=== PATIENT | male | born 1955 | race Caucasian/White ===

== ENCOUNTER 2017-01-04 10:32 | Emergency (ER) | payer BC, OTHER ==
--- NOTE | 2017-01-04 11:54 | ED ORDER SUMMARY ---
..... Patient: KEILA SMILEY OrderSheet [facility] VisitID: [id number] [place] [address] 61y, M Registration Date/Time: 01/04/2017 ORDER SHEET Weight: 91.6 kg (stated) Allergies: Penicillins, Cephalexin GENERAL ORDERS: Dress Wounds (11:34 01/04/2017 Isaías PAPPAS) (11:43 LWhaltony R.N.) MEDICATION ORDERS: Tdap IM 0.5 mL (NOW, per protocol) (11:34 01/04/2017 Isaías PAPPAS) (11:45 LWmarsha R.N.) IV FLUIDS: ORDER SHEET NOTES: [Electronically signed by Dani Kaur MD (13:00 01/04/2017)] [Electronically signed by Fabienne Davison R.N. (09:55 01/09/2017)] [Electronically locked/signed by Fabienne Davison R.N. (09:55 01/09/2017)]
--- NOTE | 2017-01-04 11:54 | ED ORDER SUMMARY ---
..... Patient: KEILA SMILEY OrderSheet [facility] VisitID: [id number] [place] [address] 61y, M Registration Date/Time: 01/04/2017 ORDER SHEET Weight: 91.6 kg (stated) Allergies: Penicillins, Cephalexin GENERAL ORDERS: Dress Wounds (11:34 01/04/2017 Isaías PAPPAS) (11:43 LWhaltony R.N.) MEDICATION ORDERS: Tdap IM 0.5 mL (NOW, per protocol) (11:34 01/04/2017 Isaías PAPPAS) (11:45 LWmarsha R.N.) IV FLUIDS: ORDER SHEET NOTES: [Electronically signed by Dani Kaur MD (13:00 01/04/2017)] [Electronically signed by Fabienne Davison R.N. (09:55 01/09/2017)] [Electronically locked/signed by Fabienne Davison R.N. (09:55 01/09/2017)]
--- NOTE | 2017-01-04 11:54 | ED CLINICAL REPORT ---
Clinical Report - Physicians/Mid Levels [facility] [address] [place] [address] 01/04/2017 10:34 Patient: KEILA SMILEY Time Seen: 10:39. Arrived- By private vehicle. Historian- patient. HISTORY OF PRESENT ILLNESS Chief Complaint: DOG BITE. Location of injuries- right hand. The injury occurred today. The animal reportedly appeared well and the immunization status of the animal is unknown. The animal was not captured. Occurred at home. (t was a neighborhood dog walked into his yard and confronted his dog. He was trying to separate them when the neighborhood dog bit him). Treatment TYPE MAPPER- none. REVIEW OF SYSTEMS No numbness, tingling, chills, fever or sweats. No calf pain, chest pain, cough, difficulty breathing or pedal edema. No palpitations, abdominal pain, constipation, diarrhea or nausea. No vomiting or urinary problems. All systems otherwise negative, except as recorded above. PAST HISTORY Tetanus immunization status is unknown. SOCIAL HISTORY Never smoker. No alcohol use or drug use. FAMILY HISTORY No significant family medical history. ADDITIONAL NOTES The nursing notes have been reviewed. PHYSICAL EXAM Vital Signs: 01/04/2017 10:42 BP: 146/87. HR: 69. RR: 18. O2 saturation: 96%. Temp: 98.4 F. Have been reviewed. Appearance: Alert. Eyes: Eyes normal inspection. ENT: Nose normal on inspection. Mouth normal on inspection. Neck: Normal inspection. CVS: Heart sounds normal. Respiratory: Breath sounds normal. Abdomen: Normal inspection. Back: Normal inspection. Skin: Skin warm and dry. Extremities: Right hand: mild tenderness and swelling, small ecchymosis and multiple puncture wounds localized to the dorsal and palmar aspect of the hand. Neurovascular intact distally. Neuro: No motor deficit. No sensory deficit. PROGRESS AND PROCEDURES Course of Care: Patient is stable. Patient/family counseled. Old medical records ordered. Old records unavailable. Disposition: Discharged. Condition: stable. CLINICAL IMPRESSION Deep dog bite to the right hand. INSTRUCTIONS Protect wound and keep wound area clean. Change dressing twice daily. You may wash wounds briefly, then dry. Apply neosporin twice daily. Warnings: COMPLICATIONS: Complications from this condition include: possible infection, possible injury to a nerve, possible injury to a tendon and possible injury to a ligament. Future problems may include infection, scarring, loss of function, pain and deformity. INFECTION: Watch for signs of infection (increasing heat and redness, pus-like drainage, swelling, or increased pain). Return or see your doctor if these signs occur. TETANUS: You were given a tetanus shot during your visit. Make a note for future reference. GENERAL WARNINGS: Return or contact your physician immediately if your condition worsens or changes unexpectedly, if not improving as expected, or if other problems arise. Prescription Medications: Clindamycin 150 mg: take 3 capsules orally every 8 hours for 10 days. No refill. Doxycycline 100 mg: Take 1 capsule orally every 12 hours for 10 days. No refill. hold this prescription for these medications as discussed. Initiate their use if signs or symptoms of infection develop as discussed. Understanding of the discharge instructions verbalized by patient. (Electronically signed by Dani Kaur MD 01/04/2017 13:00)
--- NOTE | 2017-01-04 11:54 | ED NURSING NOTES ---
Clinical Report - Nurses [facility] [address] [place] [address] 01/04/2017 10:34 Patient: KEILA SMILEY TRIAGE Triage time 10:42 Jan 04 2017. Acuity: LEVEL 4. Chief Complaint: DOG BITE. XAVIER COMA SCORE: Xavier Coma Scale: 15- eyes open spontaneously (4); best verbal response- oriented x 4 (5); best motor response- obeys commands (6). --10:48 Fabienne Davison R.N. 10:42 01/04/17. BP: 146/87. HR: 69. RR: 18. O2 saturation: 96%. Temp: 98.4 F. Pain level now 5/10. --10:48 Fabienne Davison R.N. Weight: 91.6 kg stated. Height/Length: 72 inches Per Patient. BMI: 27.4. --10:47 Fabienne Davison R.N. Medications Methocarbamol Oral. --10:44 Fabienne Davison R.N. Gabapentin Oral. --10:44 Fabienne Davison R.N. Tumeric. --10:44 Fabienne Davison R.N. Allergies Penicillins. --10:44 Fabienne Davison R.N. Cephalexin. --10:44 Fabienne Davison R.N. History Arrived by private vehicle. Historian: patient. Accompanied by family. This occurred just prior to arrival. Circumstances: This was a "provoked" attack. No difficulty breathing, skin rash, trouble swallowing, itching or dizziness. No fever. Has had no redness, swelling or drainage from wound. The animal reportedly appeared well and the immunization status of the animal is unknown. 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 PAST MEDICAL HX: Tetanus status: unknown. Immunizations: status is unknown. SOCIAL HX: Never smoker. No alcohol use or drug use. SELF HARM ASSESSMENT: A self harm assessment was performed. The patient answered "no" to the question "Have you recently felt down, depressed, or hopeless?" and "Do you have thoughts of harming or killing yourself?". FALL RISK ASSESSMENT: Fall risk assessment completed. No fall risk identified. NUTRITIONAL RISK ASSESSMENT: The nutritional risk assessment revealed no deficiencies. FUNCTIONAL ASSESSMENT: Functional assessment: no impairments noted. LEARNING NEEDS ASSESSMENT: The learning needs assessment revealed no barriers. ABUSE ASSESSMENT: Abuse assessment: (yes) The patient was asked "Do you feel safe in your home?". SKIN INTEGRITY ASSESSMENT: Skin integrity risk assessment completed. No skin integrity risk identified. --10:48 Fabienne Davison R.N. PROBLEMS: Cancer. --10:46 Fabienne Davison R.N. ADDITIONAL SURGERIES: Back Surgery. Groin surgery . --10:46 Fabienne Davison R.N. Tonsillectomy. --10:46 Fabienne Davison R.N. Interventions ID band on patient. --10:48 Fabienne Davison R.N. PHYSICAL ASSESSMENT Ambulatory to room. GENERAL / NEURO / PSYCH: Alert. Oriented X 4. Appears in no acute distress. HEENT: Pupils equal, round and reactive to light. Head non-tender. RESPIRATORY: Respirations not labored. Breath sounds within normal limits. CVS: Normal heart rate and rhythm. Pulses within normal limits. Capillary refill less than 2 seconds. GI / : Abdomen soft and nontender. EXTREMITIES: Extremities exhibit normal ROM. Neuro-vascular status intact to the extremity. Right hand: multiple puncture wounds. SKIN: Skin is warm and dry. No signs or symptoms of infection. --10:48 Fabienne Davison R.N. NURSING PROGRESS NOTES The initial plan of care for this patient includes an assessment with efforts to address patient positioning and appropriate ambient lighting; impairment of the integumentary system. Call light placed in reach. Side rails up x 1. Bed placed in lowest position. Brakes of bed on. --10:49 Fabienne Davison R.N. 11:43 01/04/2017 TDAP IM 0.5 mL given. (Lot#: [id number], expiration date: 06/28/2018, Manager Furniture: Audaster). Given in the right deltoid. Allergies verified and confirmed 5 rights. Vaccine information statement provided to the patient and patient's family. --11:45 Fabienne Davison R.N. Wound cleansed. Wound irrigated. Applied dressing consisting of Band-Aid, following the application of antibiotic ointment (bacitracin). --11:56 Fabienne Daivson R.N. DISPOSITION / DISCHARGE Departure time: 11:45 Jan 04 2017. Condition at departure: improved. No learning barriers present. Discharge instructions provided and reviewed with the patient and spouse. Reviewed warnings. Reviewed medication(s). Treatments reviewed. Reviewed referrals. Patient verbalized understanding. Written instructions provided in Indonesian. The patient was discharged home and accompanied by spouse. He left the Emergency Department ambulatory and via private vehicle. Spouse driving. --11:57 Fabienne Davison R.N. 10:42 01/04/17. BP: 146/87. HR: 69. RR: 18. O2 saturation: 96%. Temp: 98.4 F. Pain level now 5/10. --11:57 Fabienne Davison R.N. Locked/Released at 01/09/2017 9:55 by Fabienne Davison R.N.
--- NOTE | 2017-01-04 11:54 | ED CLINICAL REPORT ---
Clinical Report - Physicians/Mid Levels [facility] [address] [place] [address] 01/04/2017 10:34 Patient: KEILA SMILEY Time Seen: 10:39. Arrived- By private vehicle. Historian- patient. HISTORY OF PRESENT ILLNESS Chief Complaint: DOG BITE. Location of injuries- right hand. The injury occurred today. The animal reportedly appeared well and the immunization status of the animal is unknown. The animal was not captured. Occurred at home. (t was a neighborhood dog walked into his yard and confronted his dog. He was trying to separate them when the neighborhood dog bit him). 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 REVIEW OF SYSTEMS No numbness, tingling, chills, fever or sweats. No calf pain, chest pain, cough, difficulty breathing or pedal edema. No palpitations, abdominal pain, constipation, diarrhea or nausea. No vomiting or urinary problems. All systems otherwise negative, except as recorded above. PAST HISTORY Tetanus immunization status is unknown. SOCIAL HISTORY Never smoker. No alcohol use or drug use. FAMILY HISTORY No significant family medical history. ADDITIONAL NOTES The nursing notes have been reviewed. PHYSICAL EXAM Vital Signs: 01/04/2017 10:42 BP: 146/87. HR: 69. RR: 18. O2 saturation: 96%. Temp: 98.4 F. Have been reviewed. Appearance: Alert. Eyes: Eyes normal inspection. ENT: Nose normal on inspection. Mouth normal on inspection. Neck: Normal inspection. CVS: Heart sounds normal. Respiratory: Breath sounds normal. Abdomen: Normal inspection. Back: Normal inspection. Skin: Skin warm and dry. Extremities: Right hand: mild tenderness and swelling, small ecchymosis and multiple puncture wounds localized to the dorsal and palmar aspect of the hand. Neurovascular intact distally. Neuro: No motor deficit. No sensory deficit. PROGRESS AND PROCEDURES Course of Care: Patient is stable. Patient/family counseled. Old medical records ordered. Old records unavailable. Disposition: Discharged. Condition: stable. CLINICAL IMPRESSION Deep dog bite to the right hand. INSTRUCTIONS Protect wound and keep wound area clean. Change dressing twice daily. You may wash wounds briefly, then dry. Apply neosporin twice daily. Warnings: COMPLICATIONS: Complications from this condition include: possible infection, possible injury to a nerve, possible injury to a tendon and possible injury to a ligament. Future problems may include infection, scarring, loss of function, pain and deformity. INFECTION: Watch for signs of infection (increasing heat and redness, pus-like drainage, swelling, or increased pain). Return or see your doctor if these signs occur. TETANUS: You were given a tetanus shot during your visit. Make a note for future reference. GENERAL WARNINGS: Return or contact your physician immediately if your condition worsens or changes unexpectedly, if not improving as expected, or if other problems arise. Prescription Medications: Clindamycin 150 mg: take 3 capsules orally every 8 hours for 10 days. No refill. Doxycycline 100 mg: Take 1 capsule orally every 12 hours for 10 days. No refill. hold this prescription for these medications as discussed. Initiate their use if signs or symptoms of infection develop as discussed. Understanding of the discharge instructions verbalized by patient. (Electronically signed by Dani Kaur MD 01/04/2017 13:00)
--- NOTE | 2017-01-04 11:54 | ED NURSING NOTES ---
Clinical Report - Nurses [facility] [address] [place] [address] 01/04/2017 10:34 Patient: KEILA SMILEY TRIAGE Triage time 10:42 Jan 04 2017. Acuity: LEVEL 4. Chief Complaint: DOG BITE. XAVIER COMA SCORE: Xavier Coma Scale: 15- eyes open spontaneously (4); best verbal response- oriented x 4 (5); best motor response- obeys commands (6). --10:48 Fabienne Davison R.N. 10:42 01/04/17. BP: 146/87. HR: 69. RR: 18. O2 saturation: 96%. Temp: 98.4 F. Pain level now 5/10. --10:48 Fabienne Davison R.N. Weight: 91.6 kg stated. Height/Length: 72 inches Per Patient. BMI: 27.4. --10:47 Fabienne Davison R.N. Medications Methocarbamol Oral. --10:44 Fabienne Davison R.N. Gabapentin Oral. --10:44 Fabienne Davison R.N. Tumeric. --10:44 Fabienne Davison R.N. Allergies Penicillins. --10:44 Fabienne Davison R.N. Cephalexin. --10:44 Fabienne Davison R.N. History Arrived by private vehicle. Historian: patient. Accompanied by family. This occurred just prior to arrival. Circumstances: This was a "provoked" attack. No difficulty breathing, skin rash, trouble swallowing, itching or dizziness. No fever. Has had no redness, swelling or drainage from wound. The animal reportedly appeared well and the immunization status of the animal is unknown. 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 PAST MEDICAL HX: Tetanus status: unknown. Immunizations: status is unknown. SOCIAL HX: Never smoker. No alcohol use or drug use. SELF HARM ASSESSMENT: A self harm assessment was performed. The patient answered "no" to the question "Have you recently felt down, depressed, or hopeless?" and "Do you have thoughts of harming or killing yourself?". FALL RISK ASSESSMENT: Fall risk assessment completed. No fall risk identified. NUTRITIONAL RISK ASSESSMENT: The nutritional risk assessment revealed no deficiencies. FUNCTIONAL ASSESSMENT: Functional assessment: no impairments noted. LEARNING NEEDS ASSESSMENT: The learning needs assessment revealed no barriers. ABUSE ASSESSMENT: Abuse assessment: (yes) The patient was asked "Do you feel safe in your home?". SKIN INTEGRITY ASSESSMENT: Skin integrity risk assessment completed. No skin integrity risk identified. --10:48 Fabienne Davison R.N. PROBLEMS: Cancer. --10:46 Fabienne Davison R.N. ADDITIONAL SURGERIES: Back Surgery. Groin surgery . --10:46 Fabienne Davison R.N. Tonsillectomy. --10:46 Fabienne Davison R.N. Interventions ID band on patient. --10:48 Fabienne Davison R.N. PHYSICAL ASSESSMENT Ambulatory to room. GENERAL / NEURO / PSYCH: Alert. Oriented X 4. Appears in no acute distress. HEENT: Pupils equal, round and reactive to light. Head non-tender. RESPIRATORY: Respirations not labored. Breath sounds within normal limits. CVS: Normal heart rate and rhythm. Pulses within normal limits. Capillary refill less than 2 seconds. GI / : Abdomen soft and nontender. EXTREMITIES: Extremities exhibit normal ROM. Neuro-vascular status intact to the extremity. Right hand: multiple puncture wounds. SKIN: Skin is warm and dry. No signs or symptoms of infection. --10:48 Fabienne Davison R.N. NURSING PROGRESS NOTES The initial plan of care for this patient includes an assessment with efforts to address patient positioning and appropriate ambient lighting; impairment of the integumentary system. Call light placed in reach. Side rails up x 1. Bed placed in lowest position. Brakes of bed on. --10:49 Fabienne Davison R.N. 11:43 01/04/2017 TDAP IM 0.5 mL given. (Lot#: [id number], expiration date: 06/28/2018, House Shorer: Trellie). Given in the right deltoid. Allergies verified and confirmed 5 rights. Vaccine information statement provided to the patient and patient's family. --11:45 Fabienne Davison R.N. Wound cleansed. Wound irrigated. Applied dressing consisting of Band-Aid, following the application of antibiotic ointment (bacitracin). --11:56 Fabienne Davison R.N. DISPOSITION / DISCHARGE Departure time: 11:45 Jan 04 2017. Condition at departure: improved. No learning barriers present. Discharge instructions provided and reviewed with the patient and spouse. Reviewed warnings. Reviewed medication(s). Treatments reviewed. Reviewed referrals. Patient verbalized understanding. Written instructions provided in [place]. The patient was discharged home and accompanied by spouse. He left the Emergency Department ambulatory and via private vehicle. Spouse driving. --11:57 Fabienne Davison R.N. 10:42 01/04/17. BP: 146/87. HR: 69. RR: 18. O2 saturation: 96%. Temp: 98.4 F. Pain level now 5/10. --11:57 Fabienne Davison R.N. Locked/Released at 01/09/2017 9:55 by Fabienne Davison R.N.
--- NOTE | 2017-01-09 09:56 | ED DISCHARGE INSTRUCTIONS ---
Patient: KEILA SMILEY General Instructions [facility] VisitID: [id number] [place] [address] 61y, M Registration Date/Time: 01/04/2017 Deep dog bite to the right hand. INSTRUCTIONS Protect wound and keep wound area clean. Change dressing twice daily. You may wash wounds briefly, then dry. Apply neosporin twice daily. Warnings: COMPLICATIONS: Complications from this condition include: possible infection, possible injury to a nerve, possible injury to a tendon and possible injury to a ligament. Future problems may include infection, scarring, loss of function, pain and deformity. INFECTION: Watch for signs of infection (increasing heat and redness, pus-like drainage, swelling, or increased pain). Return or see your doctor if these signs occur. TETANUS: You were given a tetanus shot during your visit. Make a note for future reference. GENERAL WARNINGS: Return or contact your physician immediately if your condition worsens or changes unexpectedly, if not improving as expected, or if other problems arise. Prescription Medications: Clindamycin 150 mg: take 3 capsules orally every 8 hours for 10 days. No refill. Doxycycline 100 mg: Take 1 capsule orally every 12 hours for 10 days. No refill. hold this prescription for these medications as discussed. Initiate their use if signs or symptoms of infection develop as discussed. Understanding of the discharge instructions verbalized by patient. ADDITIONAL INFORMATION Animal Bite, General If you have been bitten by an animal and the wound is deep enough to break the skin, an infection may occur. Therefore, watch for the warning signs listed below. If a cut (laceration) was present, the doctor may not close the wound completely. This is to allow fluid to drain in the event of an infection. Home Care: Watch the wound for signs of infection listed below which may begin within6 hours after the bite and progress rapidly. In certain types of bites, antibiotics may be prescribed. Begin taking these as soon as possible until they are all gone. Rabies Prevention If you live in an area where rabies occurs in the wild animals, if you were bitten by a dog, cat, skunk, raccoon, burton, coyote, bobcat, woodchuck, bat, or other meat-eating animal, there may be some risk to you of getting the rabies virus. If a healthy-looking pet dog or cat has bitten you, it should be kept in a secure area for the next 10 days to watch for signs of illness. (If the pet lead technician wont cooperate with you, contact the animal control department.) If the dog or cat becomes ill or dies during that time, contact your [facility] animal control department at once so the animal may be tested for rabies. If the pet stays healthy for the next10 days, there is no danger of rabies in the animal or you. Pets fully vaccinated against rabies (2 shots) are at very low risk of infection; however, because human rabies is almost always fatal,any biting pet should be confined for10 days as an extra precaution. If astray pet bit you, contact the animal control department. They can provide information on capture, quarantine, and animal rabies testing. If you are unable to locate the animal that bit you in the next2 days, and if rabies exists in your region, you must be evaluated for the rabies vaccine series. Contact your doctor or return here promptly. All animal bites should be reported to the [facility] animal control department. If you were not given a form to fill out, you can report this yourself. Follow Up with your doctor or this facility as directed. Most skin wounds heal crymhm25 days. However, an infection may occur even with proper treatment. Check your wound every 6 hours for the first 2 days, then at least once a day for the next several days for the signs of infection listed below. Get Prompt Medical Attention if any of the following occur: Signs of infection: Spreading redness from the wound Increased pain or swelling Fever of 100.4F (38C) or higher, or as directed by your healthcare provider Colored fluid or pus draining from the wound Headache, confusion, strange behavior, or seizure (signs of a rabies infection) Dog Bite If a dog has bitten you and the wound is deep enough to break the skin, an infection may occur. Therefore, you should watch for the warning signs listed below. The doctor may not close the wound completely. This is to allow fluid to drain in the event of an infection. Home Care Watch the wound for signs of infection listed below. In certain types of bites, antibiotics may be prescribed. Begin taking these as soon as possible, as directed until they are all gone. Rabies Prevention If you live in an area where rabies occurs in wild animals, the rabies virus can be passed to cats and dogs. An infected animal can pass the rabies virus to you during a bite. If ahealthy-looking pet dog has bitten you, it should be kept in a secure area for the next 10 days to watch for signs of illness. If the pet lead technician wont cooperate with you, contact the [facility] animal control department (or local law enforcement). If the animal becomes ill or dies [id number] days, contact your animal control department at once. The animal must be tested for rabies. If the animal stays healthy for the next 10 days, then there is no danger of rabies in the dog or you. Pets fully vaccinated against rabies (2 shots) are at very low risk for the infection. However, because human rabies is almost always fatal, any biting dog should be kept in confinement for 10 days as an extra precaution. If a stray dog bit you, contact the animal control department. They can provide information on capture, quarantine, and animal rabies testing. If you are unable to locate the animal that bit you in the next 2days, and if rabies exists in your region, you must be evaluated for the rabies vaccine series. Contact your doctor or return here promptly. All animal bites should be reported to the [facility] animal control department. If you were not given a form to fill out, you can report it yourself by calling. Follow Up with your doctor as advised. Most skin wounds heal within 10 days. However, an infection may occur even with proper treatment. Check your woundevery 6 hoursfor 2 days, then at least once a day for the next two days for the signs of infection listed below. Get Prompt Medical Attention if any of the following occur: Signs of infection: Spreading redness Increased pain or swelling Fever of 100.4F (38C) or higher, or as directed by your healthcare provider Colored fluid or pus draining from the wound Headache, confusion, strange behavior, or a seizure (signs of a rabies infection) Puncture Wound (General) A puncture wound is a hole through the skin. Bacteria, dirt and debris can be drawn into this wound, increasing the risk of infection. However, antibiotics are usually not prescribed for this injury unless signs of infection are already present. Therefore, it is important to observe the wound closely for the signs of infection listed below. Home Care: If your wound is on an arm, hand, leg, or foot, keep that part raised during the first 48 hours to reduce swelling and pain. Keep the wound clean and dry. If a bandage was applied and it becomes wet or dirty, replace it. Otherwise, leave it in place for the next 24 hours. You may use acetaminophen (Tylenol) or ibuprofen (Motrin, Advil) to control pain, unless another medicine was prescribed. [NOTE: If you have chronic liver or kidney disease or ever had a stomach ulcer or GI bleeding, talk with your doctor before using these medicines.] You may shower as usual. However, do not soak the area in water (no baths or swimming) during the first 48 hours. Follow Up: Most puncture wounds heal within 10 days. However, an infection may sometimes occur despite proper treatment. If small particles were drawn into the puncture wound (such as fragments of cloth, rubber, wood or dirt), an infection may occur. These fragments are very hard to find during the first exam since it is not possible to get a good look inside a puncture wound and they do not show on an X-ray. Antibiotics and a minor surgical procedure to find and remove the foreign object will be needed if this happens. Therefore, check the wound daily for the warning signs listed below. Get Prompt Medical Attention if any of the following occur: SIGNS OF INFECTION: Increasing pain in the wound Redness, swelling, pus or red lines coming from the wound Fever of 100.4F (38C) or higher, or as directed by your healthcare provider Diphtheria Toxoid Adsorbed, Pertussis Vaccine, Acellular (Adsorbed), Tetanus Toxoid, Adsorbed Suspension for injection What is this medicine? DIPHTHERIA and TETANUS TOXOIDS; PERTUSSIS VACCINE (dif THEER ee and TET n us TOK soids; per TUS iss vak SEEN) is used to prevent diphtheria, tetanus, and pertussis infections. How should I use this medicine? This vaccine is for injection into a muscle. It is given by a health child care centre manager. A copy of Vaccine Information Statements will be given before each vaccination. Read this sheet carefully each time. The sheet may change frequently. Talk to your structural rigger regarding the use of this vaccine in children. While the DTP vaccine may be given to children ages 6 weeks to 7 years and the Tdap vaccine may be given to children at least 10 years old, precautions do apply. What side effects may I notice from receiving this medicine? Side effects that you should report to your doctor or health child care centre manager as soon as possible: allergic reactions like skin rash, itching or hives, swelling of the face, lips, or tongue breathing problems fever of 103 degrees F or more flu-like symptoms inconsolable crying infection pain, tingling, numbness in the hands or feet seizures swelling of arm or leg that was injected unusually weak or tired Side effects that usually do not require immediate medical attention (report these side effects to your doctor or health child care centre manager if they continue or are bothersome): fussy, irritable loss of appetite fever of 102 degrees F or less pain, tenderness, redness, swelling, or a 'knot' at site where injected vomiting What may interact with this medicine? immune globulin medicines that suppress your immune function like adalimumab, anakinra, infliximab medicines to treat cancer medicines that treat or prevent blood clots like warfarin, enoxaparin, and dalteparin steroid medicines like prednisone or cortisone What if I miss a dose? It is important not to miss your dose. Call your doctor or health child care centre manager if you are unable to keep an appointment. Where should I keep my medicine? This drug is given in a hospital or clinic and will not be stored at home. What should I tell my health care provider before I take this medicine? They need to know if you have any of these conditions: blood disorders like hemophilia fever or infection immune system problems neurologic disease seizures an unusual or allergic reaction to vaccines, thimerosal, latex, other medicines, foods, dyes, or preservatives or trying to get breast-feeding What should I watch for while using this medicine? See your health care provider for all shots of this vaccine as directed. To have protection from infection, you must have 3 shots of this vaccine plus boosters as needed. Tell your doctor right away if you have any serious or unusual side effects after getting this vaccine. Clindamycin Hydrochloride Oral capsule What is this medicine? CLINDAMYCIN (KLIN da MYE sin) is a lincosamide antibiotic. It is used to treat certain kinds of bacterial infections. It will not work for colds, flu, or other viral infections. How should I use this medicine? Take this medicine by mouth with a full glass of water. Follow the directions on the prescription label. You can take this medicine with food or on an empty stomach. If the medicine upsets your stomach, take it with food. Take your medicine at regular intervals. Do not take your medicine more often than directed. Take all of your medicine as directed even if you think your are better. Do not skip doses or stop your medicine early. Talk to your structural rigger regarding the use of this medicine in children. Special care may be needed. What side effects may I notice from receiving this medicine? Side effects that you should report to your doctor or health child care centre manager as soon as possible: allergic reactions like skin rash, itching or hives, swelling of the face, lips, or tongue dark urine pain on swallowing redness, blistering, peeling or loosening of the skin, including inside the mouth unusual bleeding or bruising unusually weak or tired yellowing of eyes or skin Side effects that usually do not require medical attention (report to your doctor or health child care centre manager if they continue or are bothersome): diarrhea itching in the rectal or genital area joint pain nausea, vomiting stomach pain What may interact with this medicine? chloramphenicol erythromycin kaolin products What if I miss a dose? If you miss a dose, take it as soon as you can. If it is almost time for your next dose, take only that dose. Do not take double or extra doses. Where should I keep my medicine? Keep out of the reach of children. Store at room temperature between 20 and 25 degrees C (68 and 77 degrees F). Throw away any unused medicine after the expiration date. What should I tell my health care provider before I take this medicine? They need to know if you have any of these conditions: kidney disease liver disease stomach problems like colitis an unusual or allergic reaction to clindamycin, lincomycin, or other medicines, foods, dyes like tartrazine or preservatives or trying to get breast-feeding What should I watch for while using this medicine? Tell your doctor or healthcare professional if your symptoms do not start to get better or if they get worse. Do not treat diarrhea with over the counter products. Contact your doctor if you have diarrhea that lasts more than 2 days or if it is severe and watery. Doxycycline Monohydrate Oral tablet What is this medicine? DOXYCYCLINE (dox nate riley) is a tetracycline antibiotic. It kills certain bacteria or stops their growth. It is used to treat many kinds of infections, like dental, skin, respiratory, and urinary tract infections. It also treats acne, Lyme disease, malaria, and certain sexually transmitted infections. How should I use this medicine? Take this medicine by mouth with a full glass of water. Follow the directions on the prescription label. It is best to take this medicine without food, but if it upsets your stomach take it with food. Take your medicine at regular intervals. Do not take your medicine more often than directed. Take all of your medicine as directed even if you think you are better. Do not skip doses or stop your medicine early. Talk to your structural rigger regarding the use of this medicine in children. Special care may be needed. While this drug may be prescribed for children as young as 8 years old for selected conditions, precautions do apply. What side effects may I notice from receiving this medicine? Side effects that you should report to your doctor or health child care centre manager as soon as possible: allergic reactions like skin rash, itching or hives, swelling of the face, lips, or tongue difficulty breathing fever itching in the rectal or genital area pain on swallowing redness, blistering, peeling or loosening of the skin, including inside the mouth severe stomach pain or cramps unusual bleeding or bruising unusually weak or tired yellowing of the eyes or skin Side effects that usually do not require medical attention (report to your doctor or health child care centre manager if they continue or are bothersome): diarrhea loss of appetite nausea, vomiting What may interact with this medicine? antacids barbiturates control pills bismuth subsalicylate carbamazepine methoxyflurane other antibiotics phenytoin vitamins that contain iron warfarin What if I miss a dose? If you miss a dose, take it as soon as you can. If it is almost time for your next dose, take only that dose. Do not take double or extra doses. Where should I keep my medicine? Keep out of the reach of children. Store at room temperature, below 30 degrees C (86 degrees F). Protect from light. Keep container tightly closed. Throw away any unused medicine after the expiration date. Taking this medicine after the expiration date can make you seriously ill. What should I tell my health care provider before I take this medicine? They need to know if you have any of these conditions: liver disease long exposure to sunlight like working outdoors stomach problems like colitis an unusual or allergic reaction to doxycycline, tetracycline antibiotics, other medicines, foods, dyes, or preservatives or trying to get breast-feeding What should I watch for while using this medicine? Tell your doctor or health child care centre manager if your symptoms do not improve. Do not treat diarrhea with over the counter products. Contact your doctor if you have diarrhea that lasts more than 2 days or if it is severe and watery. Do not take this medicine just before going to bed. It may not dissolve properly when you lay down and can cause pain in your throat. Drink plenty of fluids while taking this medicine to also help reduce irritation in your throat. This medicine can make you more sensitive to the sun. Keep out of the sun. If you cannot avoid being in the sun, wear protective clothing and use sunscreen. Do not use sun lamps or tanning beds/booths. control pills may not work properly while you are taking this medicine. Talk to your doctor about using an extra method of control. If you are being treated for a sexually transmitted infection, avoid sexual contact until you have finished your treatment. Your sexual partner may also need treatment. Avoid antacids, aluminum, calcium, magnesium, and iron products for 4 hours before and 2 hours after taking a dose of this medicine. If you are using this medicine to prevent malaria, you should still protect yourself from contact with mosquitos. Stay in screened-in areas, use mosquito nets, keep your body covered, and use an insect repellent. You have been given the following additional information: Animal Bite, General Dog Bite Puncture Wound, General Diphtheria Toxoid Adsorbed, Pertussis Vaccine, Acellular (Adsorbed), Tetanus Toxoid, Adsorbed Suspension for injection Clindamycin Hydrochloride Oral capsule Doxycycline Monohydrate Oral tablet (Electronically signed by Dani Kaur MD 01/04/2017 13:00)
--- NOTE | 2017-01-09 09:56 | ED MAR SUMMARY ---
..... Medication Administration Record [facility] [address] [place] [address] Patient: KEILA SMILEY Visit ID: [id number] 61y, M Weight: 91.6 kg Height/Length: 72 in BMI: 27.4 ALLERGIES: Cephalexin, Penicillins Given 11:43 01/04/2017 Fabienne Davison R.N. Medication Administered: TDAP [IM], Dose: 0.5 mL IM. Medication Ordered: Tdap IM 0.5 mL (NOW, per protocol).
--- NOTE | 2017-01-09 09:56 | ED MAR SUMMARY ---
..... Medication Administration Record [facility] [address] [place] [address] Patient: KEILA SMILEY Visit ID: [id number] 61y, M Weight: 91.6 kg Height/Length: 72 in BMI: 27.4 ALLERGIES: Cephalexin, Penicillins Given 11:43 01/04/2017 Fabienne Davison R.N. Medication Administered: TDAP [IM], Dose: 0.5 mL IM. Medication Ordered: Tdap IM 0.5 mL (NOW, per protocol).
--- NOTE | 2017-01-09 09:56 | ED MED RECONCILIATION SUMMARY ---
Patient: KEILA SMILEY Medication Reconciliation Report [facility] VisitID: [id number] [place] [address] 61y, M Registration Date/Time: 01/04/2017 Weight: 91.6 kg Height/Length: 72 in. BMI: 27.4 ALLERGIES: Cephalexin, Penicillins The patient's Home Medications are listed below: THE FOLLOWING MEDICATIONS NEED TO BE RECONCILED: Gabapentin Oral Methocarbamol Oral Tumeric The source(s) of the original Home Medication information: Not obtained. The following Medications were given to the patient in the Emergency Department: TDAP [IM] IM 0.5 mL, administered: 01/04/2017 11:43:00 AM The following Medications were prescribed to the patient: hold this prescription for these medications as discussed. Initiate their use if signs or symptoms of infection develop as discussed. -- Dani Kaur MD Clindamycin 150 mg: take 3 capsules orally every 8 hours for 10 days. No refill. -- Dani Kaur MD Doxycycline 100 mg: Take 1 capsule orally every 12 hours for 10 days. No refill. -- Dani Kaur MD
--- NOTE | 2017-01-09 09:56 | ED MED RECONCILIATION SUMMARY ---
Patient: KEILA SMILEY Medication Reconciliation Report [facility] VisitID: [id number] [place] [address] 61y, M Registration Date/Time: 01/04/2017 Weight: 91.6 kg Height/Length: 72 in. BMI: 27.4 ALLERGIES: Cephalexin, Penicillins The patient's Home Medications are listed below: THE FOLLOWING MEDICATIONS NEED TO BE RECONCILED: Gabapentin Oral Methocarbamol Oral Tumeric The source(s) of the original Home Medication information: Not obtained. The following Medications were given to the patient in the Emergency Department: TDAP [IM] IM 0.5 mL, administered: 01/04/2017 11:43:00 AM The following Medications were prescribed to the patient: hold this prescription for these medications as discussed. Initiate their use if signs or symptoms of infection develop as discussed. -- Dani Kaur MD Clindamycin 150 mg: take 3 capsules orally every 8 hours for 10 days. No refill. -- Dani Kaur MD Doxycycline 100 mg: Take 1 capsule orally every 12 hours for 10 days. No refill. -- Dani Kaur MD
--- NOTE | 2017-01-09 09:56 | ED DISCHARGE INSTRUCTIONS ---
Patient: KEILA SMILEY General Instructions [facility] VisitID: [id number] [place] [address] 61y, M Registration Date/Time: 01/04/2017 Deep dog bite to the right hand. INSTRUCTIONS Protect wound and keep wound area clean. Change dressing twice daily. You may wash wounds briefly, then dry. Apply neosporin twice daily. Warnings: COMPLICATIONS: Complications from this condition include: possible infection, possible injury to a nerve, possible injury to a tendon and possible injury to a ligament. Future problems may include infection, scarring, loss of function, pain and deformity. INFECTION: Watch for signs of infection (increasing heat and redness, pus-like drainage, swelling, or increased pain). Return or see your doctor if these signs occur. TETANUS: You were given a tetanus shot during your visit. Make a note for future reference. GENERAL WARNINGS: Return or contact your physician immediately if your condition worsens or changes unexpectedly, if not improving as expected, or if other problems arise. Prescription Medications: Clindamycin 150 mg: take 3 capsules orally every 8 hours for 10 days. No refill. Doxycycline 100 mg: Take 1 capsule orally every 12 hours for 10 days. No refill. hold this prescription for these medications as discussed. Initiate their use if signs or symptoms of infection develop as discussed. Understanding of the discharge instructions verbalized by patient. ADDITIONAL INFORMATION Animal Bite, General If you have been bitten by an animal and the wound is deep enough to break the skin, an infection may occur. Therefore, watch for the warning signs listed below. If a cut (laceration) was present, the doctor may not close the wound completely. This is to allow fluid to drain in the event of an infection. Home Care: Watch the wound for signs of infection listed below which may begin within6 hours after the bite and progress rapidly. In certain types of bites, antibiotics may be prescribed. Begin taking these as soon as possible until they are all gone. Rabies Prevention If you live in an area where rabies occurs in the wild animals, if you were bitten by a dog, cat, skunk, raccoon, burton, coyote, bobcat, woodchuck, bat, or other meat-eating animal, there may be some risk to you of getting the rabies virus. If a healthy-looking pet dog or cat has bitten you, it should be kept in a secure area for the next 10 days to watch for signs of illness. (If the pet van owner operator wont cooperate with you, contact the animal control department.) If the dog or cat becomes ill or dies during that time, contact your [facility] animal control department at once so the animal may be tested for rabies. If the pet stays healthy for the next10 days, there is no danger of rabies in the animal or you. Pets fully vaccinated against rabies (2 shots) are at very low risk of infection; however, because human rabies is almost always fatal,any biting pet should be confined for10 days as an extra precaution. If astray pet bit you, contact the animal control department. They can provide information on capture, quarantine, and animal rabies testing. If you are unable to locate the animal that bit you in the next2 days, and if rabies exists in your region, you must be evaluated for the rabies vaccine series. Contact your doctor or return here promptly. All animal bites should be reported to the [facility] animal control department. If you were not given a form to fill out, you can report this yourself. Follow Up with your doctor or this facility as directed. Most skin wounds heal [id number] days. However, an infection may occur even with proper treatment. Check your wound every 6 hours for the first 2 days, then at least once a day for the next several days for the signs of infection listed below. Get Prompt Medical Attention if any of the following occur: Signs of infection: Spreading redness from the wound Increased pain or swelling Fever of 100.4F (38C) or higher, or as directed by your healthcare provider Colored fluid or pus draining from the wound Headache, confusion, strange behavior, or seizure (signs of a rabies infection) Dog Bite If a dog has bitten you and the wound is deep enough to break the skin, an infection may occur. Therefore, you should watch for the warning signs listed below. The doctor may not close the wound completely. This is to allow fluid to drain in the event of an infection. Home Care Watch the wound for signs of infection listed below. In certain types of bites, antibiotics may be prescribed. Begin taking these as soon as possible, as directed until they are all gone. Rabies Prevention If you live in an area where rabies occurs in wild animals, the rabies virus can be passed to cats and dogs. An infected animal can pass the rabies virus to you during a bite. If ahealthy-looking pet dog has bitten you, it should be kept in a secure area for the next 10 days to watch for signs of illness. If the pet van owner operator wont cooperate with you, contact the [facility] animal control department (or local law enforcement). If the animal becomes ill or dies [id number] days, contact your animal control department at once. The animal must be tested for rabies. If the animal stays healthy for the next 10 days, then there is no danger of rabies in the dog or you. Pets fully vaccinated against rabies (2 shots) are at very low risk for the infection. However, because human rabies is almost always fatal, any biting dog should be kept in confinement for 10 days as an extra precaution. If a stray dog bit you, contact the animal control department. They can provide information on capture, quarantine, and animal rabies testing. If you are unable to locate the animal that bit you in the next 2days, and if rabies exists in your region, you must be evaluated for the rabies vaccine series. Contact your doctor or return here promptly. All animal bites should be reported to the [facility] animal control department. If you were not given a form to fill out, you can report it yourself by calling. Follow Up with your doctor as advised. Most skin wounds heal within 10 days. However, an infection may occur even with proper treatment. Check your woundevery 6 hoursfor 2 days, then at least once a day for the next two days for the signs of infection listed below. Get Prompt Medical Attention if any of the following occur: Signs of infection: Spreading redness Increased pain or swelling Fever of 100.4F (38C) or higher, or as directed by your healthcare provider Colored fluid or pus draining from the wound Headache, confusion, strange behavior, or a seizure (signs of a rabies infection) Puncture Wound (General) A puncture wound is a hole through the skin. Bacteria, dirt and debris can be drawn into this wound, increasing the risk of infection. However, antibiotics are usually not prescribed for this injury unless signs of infection are already present. Therefore, it is important to observe the wound closely for the signs of infection listed below. Home Care: If your wound is on an arm, hand, leg, or foot, keep that part raised during the first 48 hours to reduce swelling and pain. Keep the wound clean and dry. If a bandage was applied and it becomes wet or dirty, replace it. Otherwise, leave it in place for the next 24 hours. You may use acetaminophen (Tylenol) or ibuprofen (Motrin, Advil) to control pain, unless another medicine was prescribed. [NOTE: If you have chronic liver or kidney disease or ever had a stomach ulcer or GI bleeding, talk with your doctor before using these medicines.] You may shower as usual. However, do not soak the area in water (no baths or swimming) during the first 48 hours. Follow Up: Most puncture wounds heal within 10 days. However, an infection may sometimes occur despite proper treatment. If small particles were drawn into the puncture wound (such as fragments of cloth, rubber, wood or dirt), an infection may occur. These fragments are very hard to find during the first exam since it is not possible to get a good look inside a puncture wound and they do not show on an X-ray. Antibiotics and a minor surgical procedure to find and remove the foreign object will be needed if this happens. Therefore, check the wound daily for the warning signs listed below. Get Prompt Medical Attention if any of the following occur: SIGNS OF INFECTION: Increasing pain in the wound Redness, swelling, pus or red lines coming from the wound Fever of 100.4F (38C) or higher, or as directed by your healthcare provider Diphtheria Toxoid Adsorbed, Pertussis Vaccine, Acellular (Adsorbed), Tetanus Toxoid, Adsorbed Suspension for injection What is this medicine? DIPHTHERIA and TETANUS TOXOIDS; PERTUSSIS VACCINE (dif THEER ee and TET n us TOK soids; per TUS iss vak SEEN) is used to prevent diphtheria, tetanus, and pertussis infections. How should I use this medicine? This vaccine is for injection into a muscle. It is given by a health careers adviser. A copy of Vaccine Information Statements will be given before each vaccination. Read this sheet carefully each time. The sheet may change frequently. Talk to your member service specialist regarding the use of this vaccine in children. While the DTP vaccine may be given to children ages 6 weeks to 7 years and the Tdap vaccine may be given to children at least 10 years old, precautions do apply. What side effects may I notice from receiving this medicine? Side effects that you should report to your doctor or health careers adviser as soon as possible: allergic reactions like skin rash, itching or hives, swelling of the face, lips, or tongue breathing problems fever of 103 degrees F or more flu-like symptoms inconsolable crying infection pain, tingling, numbness in the hands or feet seizures swelling of arm or leg that was injected unusually weak or tired Side effects that usually do not require immediate medical attention (report these side effects to your doctor or health careers adviser if they continue or are bothersome): fussy, irritable loss of appetite fever of 102 degrees F or less pain, tenderness, redness, swelling, or a 'knot' at site where injected vomiting What may interact with this medicine? immune globulin medicines that suppress your immune function like adalimumab, anakinra, infliximab medicines to treat cancer medicines that treat or prevent blood clots like warfarin, enoxaparin, and dalteparin steroid medicines like prednisone or cortisone What if I miss a dose? It is important not to miss your dose. Call your doctor or health careers adviser if you are unable to keep an appointment. Where should I keep my medicine? This drug is given in a hospital or clinic and will not be stored at home. What should I tell my health care provider before I take this medicine? They need to know if you have any of these conditions: blood disorders like hemophilia fever or infection immune system problems neurologic disease seizures an unusual or allergic reaction to vaccines, thimerosal, latex, other medicines, foods, dyes, or preservatives or trying to get breast-feeding What should I watch for while using this medicine? See your health care provider for all shots of this vaccine as directed. To have protection from infection, you must have 3 shots of this vaccine plus boosters as needed. Tell your doctor right away if you have any serious or unusual side effects after getting this vaccine. Clindamycin Hydrochloride Oral capsule What is this medicine? CLINDAMYCIN (KLIN da MYE sin) is a lincosamide antibiotic. It is used to treat certain kinds of bacterial infections. It will not work for colds, flu, or other viral infections. How should I use this medicine? Take this medicine by mouth with a full glass of water. Follow the directions on the prescription label. You can take this medicine with food or on an empty stomach. If the medicine upsets your stomach, take it with food. Take your medicine at regular intervals. Do not take your medicine more often than directed. Take all of your medicine as directed even if you think your are better. Do not skip doses or stop your medicine early. Talk to your member service specialist regarding the use of this medicine in children. Special care may be needed. What side effects may I notice from receiving this medicine? Side effects that you should report to your doctor or health careers adviser as soon as possible: allergic reactions like skin rash, itching or hives, swelling of the face, lips, or tongue dark urine pain on swallowing redness, blistering, peeling or loosening of the skin, including inside the mouth unusual bleeding or bruising unusually weak or tired yellowing of eyes or skin Side effects that usually do not require medical attention (report to your doctor or health careers adviser if they continue or are bothersome): diarrhea itching in the rectal or genital area joint pain nausea, vomiting stomach pain What may interact with this medicine? chloramphenicol erythromycin kaolin products What if I miss a dose? If you miss a dose, take it as soon as you can. If it is almost time for your next dose, take only that dose. Do not take double or extra doses. Where should I keep my medicine? Keep out of the reach of children. Store at room temperature between 20 and 25 degrees C (68 and 77 degrees F). Throw away any unused medicine after the expiration date. What should I tell my health care provider before I take this medicine? They need to know if you have any of these conditions: kidney disease liver disease stomach problems like colitis an unusual or allergic reaction to clindamycin, lincomycin, or other medicines, foods, dyes like tartrazine or preservatives or trying to get breast-feeding What should I watch for while using this medicine? Tell your doctor or healthcare professional if your symptoms do not start to get better or if they get worse. Do not treat diarrhea with over the counter products. Contact your doctor if you have diarrhea that lasts more than 2 days or if it is severe and watery. Doxycycline Monohydrate Oral tablet What is this medicine? DOXYCYCLINE (dox nate riley) is a tetracycline antibiotic. It kills certain bacteria or stops their growth. It is used to treat many kinds of infections, like dental, skin, respiratory, and urinary tract infections. It also treats acne, Lyme disease, malaria, and certain sexually transmitted infections. How should I use this medicine? Take this medicine by mouth with a full glass of water. Follow the directions on the prescription label. It is best to take this medicine without food, but if it upsets your stomach take it with food. Take your medicine at regular intervals. Do not take your medicine more often than directed. Take all of your medicine as directed even if you think you are better. Do not skip doses or stop your medicine early. Talk to your member service specialist regarding the use of this medicine in children. Special care may be needed. While this drug may be prescribed for children as young as 8 years old for selected conditions, precautions do apply. What side effects may I notice from receiving this medicine? Side effects that you should report to your doctor or health careers adviser as soon as possible: allergic reactions like skin rash, itching or hives, swelling of the face, lips, or tongue difficulty breathing fever itching in the rectal or genital area pain on swallowing redness, blistering, peeling or loosening of the skin, including inside the mouth severe stomach pain or cramps unusual bleeding or bruising unusually weak or tired yellowing of the eyes or skin Side effects that usually do not require medical attention (report to your doctor or health careers adviser if they continue or are bothersome): diarrhea loss of appetite nausea, vomiting What may interact with this medicine? antacids barbiturates control pills bismuth subsalicylate carbamazepine methoxyflurane other antibiotics phenytoin vitamins that contain iron warfarin What if I miss a dose? If you miss a dose, take it as soon as you can. If it is almost time for your next dose, take only that dose. Do not take double or extra doses. Where should I keep my medicine? Keep out of the reach of children. Store at room temperature, below 30 degrees C (86 degrees F). Protect from light. Keep container tightly closed. Throw away any unused medicine after the expiration date. Taking this medicine after the expiration date can make you seriously ill. What should I tell my health care provider before I take this medicine? They need to know if you have any of these conditions: liver disease long exposure to sunlight like working outdoors stomach problems like colitis an unusual or allergic reaction to doxycycline, tetracycline antibiotics, other medicines, foods, dyes, or preservatives or trying to get breast-feeding What should I watch for while using this medicine? Tell your doctor or health careers adviser if your symptoms do not improve. Do not treat diarrhea with over the counter products. Contact your doctor if you have diarrhea that lasts more than 2 days or if it is severe and watery. Do not take this medicine just before going to bed. It may not dissolve properly when you lay down and can cause pain in your throat. Drink plenty of fluids while taking this medicine to also help reduce irritation in your throat. This medicine can make you more sensitive to the sun. Keep out of the sun. If you cannot avoid being in the sun, wear protective clothing and use sunscreen. Do not use sun lamps or tanning beds/booths. control pills may not work properly while you are taking this medicine. Talk to your doctor about using an extra method of control. If you are being treated for a sexually transmitted infection, avoid sexual contact until you have finished your treatment. Your sexual partner may also need treatment. Avoid antacids, aluminum, calcium, magnesium, and iron products for 4 hours before and 2 hours after taking a dose of this medicine. If you are using this medicine to prevent malaria, you should still protect yourself from contact with mosquitos. Stay in screened-in areas, use mosquito nets, keep your body covered, and use an insect repellent. You have been given the following additional information: Animal Bite, General Dog Bite Puncture Wound, General Diphtheria Toxoid Adsorbed, Pertussis Vaccine, Acellular (Adsorbed), Tetanus Toxoid, Adsorbed Suspension for injection Clindamycin Hydrochloride Oral capsule Doxycycline Monohydrate Oral tablet (Electronically signed by Dani Kaur MD 01/04/2017 13:00)
== END 2017-01-04 11:45 | disposition home or self-care (01) ==
LOC: ED SRH 10:32
DX: S61.451A Open bite of right hand, initial encounter (principal); W54.0XXA Bitten by dog, initial encounter; Y93.9 Activity, unspecified; Y99.9 Unspecified external cause status; Y92.007 Garden or yard of unspecified non-institutional (private) residence as the place of occurrence of the external cause; Z23 Encounter for immunization